=== PATIENT | female | born 1930 | race American Indian/Alaskan Native ===

== ENCOUNTER 2018-12-26 05:24 | Emergency (ER) | payer MEDICARE ==
--- NOTE | 2018-12-26 06:11 | XRay Report ---
LEFT SHOULDER 3 VIEWS 0550 INDICATION: fall. Pain and swelling COMPARISON: None available. FINDINGS: A comminuted impacted fracture of the neck of the humerus is seen with fracture lines exten ding into the humeral head. Slight medial and posterior angulation are noted. There also appears to b e deformity of the inferior rim of the glenoid which is thought to be fractured. No dislocation is se en. Signer Name: Thai Desai MD Signed: 12/26/2018 6:06 AM Workstation Name: [id number]
--- NOTE | 2018-12-26 06:37 | Emergency Department Report ---
ED General Adult HPI - General Chief complaint: Fall Stated complaint: FALL TO LT SIDE FOR SHOULDER Time Seen by Provider: 12/26/18 06:19 Source: patient Mode of arrival: Wheelchair Limitations: No Limitations - History of Present Illness Initial comments: Patient presents to the emergency department with her family for evaluation of left arm pain. Per the family the patient has dementia and is considered a walker. Yesterday the patient got away from the home and was approximately a couple 100 feet away before they were able to redirect her when she fell. Family is not sure if the patient hit her head or not but they do endorse that the patient has had nausea and vomiting since the incident. -: Sudden Location: upper extremity Severity scale (0 -10): 6 Quality: aching Consistency: constant Improves with: rest Worsens with: movement Associated Symptoms: denies other symptoms Treatments Prior to Arrival: none - Related Data Previous Rx's Medication Instructions Recorded Last Taken Type HYDROcodone/APAP 5-325 [[place] 1 each PO Q6HR PRN #12 tablet 12/26/18 Unknown Rx 5/325] Allergies Allergy/AdvReac Type Severity Reaction Status Date / Time No Known Allergies Allergy Verified 12/26/18 05:31 ED Review of Systems ROS: Stated complaint: FALL TO LT SIDE FOR SHOULDER Other details as noted in HPI Comment: All other systems reviewed and negative Constitutional: denies: chills, fever Eyes: denies: eye pain, eye discharge, vision change ENT: denies: ear pain, throat pain Respiratory: denies: cough, shortness of breath, wheezing Cardiovascular: denies: chest pain, palpitations Endocrine: no symptoms reported Gastrointestinal: denies: abdominal pain, nausea, diarrhea Genitourinary: denies: urgency, dysuria, discharge Musculoskeletal: denies: back pain, joint swelling, arthralgia Skin: denies: rash, lesions Neurological: denies: headache, weakness, paresthesias Psychiatric: denies: anxiety, depression Hematological/Lymphatic: denies: easy bleeding, easy bruising ED Past Medical Hx - Past Medical History Previous Medical History?: Yes Hx Hypertension: Yes Hx Dementia: Yes Additional medical history: Dementia. cholestrol. pacemaker - Surgical History Past Surgical History?: Yes Hx Pacemaker: Yes Additional Surgical History: bilateral eyes - Social History Smoking Status: Never Smoker Substance Use Type: None - Medications Home Medications: Home Medications Medication Instructions Recorded Confirmed Last Taken Type HYDROcodone/APAP 5-325 [[place] 1 each PO Q6HR PRN #12 tablet 12/26/18 Unknown Rx 5/325] ED Physical Exam - General Limitations: No Limitations General appearance: alert, in no apparent distress - Head Head exam: Present: atraumatic, normocephalic - Eye Eye exam: Present: normal appearance, PERRL, EOMI - ENT ENT exam: Present: mucous membranes moist - Neck Neck exam: Present: normal inspection - Respiratory Respiratory exam: Present: normal lung sounds bilaterally. Absent: respiratory distress - Cardiovascular Cardiovascular Exam: Present: regular rate, normal rhythm. Absent: systolic murmur, diastolic murmur, rubs, gallop - GI/Abdominal GI/Abdominal exam: Present: soft, normal bowel sounds. Absent: distended, tenderness - Extremities Exam Extremities exam: Present: other (tentative palpation of the proximal aspect of the left humerus with limited range of motion secondary to pain) - Back Exam Back exam: Present: normal inspection - Neurological Exam Neurological exam: Present: alert, oriented X3 - Psychiatric Psychiatric exam: Present: normal affect, normal mood - Skin Skin exam: Present: warm, dry, intact, normal color. Absent: rash ED Course Vital Signs 12/26/18 12/26/18 05:28 06:03 Temperature 98.6 F 98.2 F Pulse Rate 92 H 86 Respiratory 16 18 Rate Blood Pressure 150/77 Blood Pressure 116/67 [Left] O2 Sat by Pulse 94 100 Oximetry ED Medical Decision Making - Radiology Data Referring Physician: MARYANN PRETTY Patient Name: EYAD LUEVANO Date of : 1930 Sex: Female Report Date: 2018-12-26 Report Status: Finalized [facility] [address] [place] [address] XRay Report Signed Patient: EYAD LUEVANO MR# : [id number] : 1930 Acct:[id number] Age/Sex: 88 / F ADM Date: 12/26/18 Loc: ED Attending Dr: Ordering Physician: MARYANN PRETTY MD Date of Service: 12/26/18 Proced ure(s): XR shoulder 2+V LT Accession Number(s): [id number] cc: ED DOCMD Fluoro Time In Minutes: LEFT SHOULDER 3 VIEWS 0550 INDICATION: fall. Pain and swelling COMPARISON: None available. FINDINGS: A comminuted impacted fracture of the neck of the humerus is seen with fracture lines extending into the humeral head. Slight medial and posterior angulation are noted. There also appears to be deformity of the inferior rim of the glenoid which is thought to be fractured. No dislocation is seen. Signer Name: Thai Desai MD Signed: 12/26/2018 6:06 AM Workstation Name: [id number] Transcribed By: TIARRA Dictated By: Thai Desai MD Electronically Authenticated By: Thai Desai MD Signed Date/Time: 12/26/18605 DD/ 2 TD/TT: - Medical Decision Making Reviewed x-rays with the patient guest Patient has had no complaints of pain in the ED Sling and Johnny wrap applied Patient has good pulses and sensation distal to the fracture Critical care attestation.: If time is entered above; I have spent that time in minutes in the direct care of this critically ill patient, excluding procedure time. ED Disposition Clinical Impression: Femur fracture, left Disposition: DC-01 TO HOME OR SELFCARE Is pt being admited?: No Does the pt Need Aspirin: No Condition: Stable Instructions: Arm Fracture in Adults (ED) Additional Instructions: return if worse Referrals: AD PATEL MD [Primary Care Provider] - 3-5 Days ISAIAH DE LA PAZ MD [Staff Physician] - 3-5 Days Time of Disposition: 08:28
--- NOTE | 2018-12-26 07:13 | XRay Report ---
Pelvis AP 0650 INDICATION: Fall COMPARISON: None FINDINGS: Patient is rotated. Prominent lower lumbar degenerative changes are seen. Mild left sacroil iac arthritic changes are noted. Mild bilateral hip degenerative changes are seen. No definite fractu res or dislocations are seen. Signer Name: Thai Desai MD Signed: 12/26/2018 7:09 AM Workstation Name: [id number]
--- NOTE | 2018-12-26 07:51 | Cat Scan Report ---
CT HEAD WITHOUT CONTRAST INDICATION: MAIN: fall. LT SHOULDER PAIN. AMS. TECHNIQUE: All CT scans at this location are performed using CT dose reduction for ALARA by means of automated exposure control. COMPARISON: None available. FINDINGS: BRAIN: No hemorrhage or mass effect are seen. No evidence of acute infarction is noted. Moderate atro phic changes are seen, Central and cortical. Mild white matter microvascular changes are noted. A 12 mm tiny old cyst is seen with thin rim calcification. ORBITS: Normal as visualized. SOFT TISSUES OF HEAD: Normal. CALVARIUM: Normal. VISUALIZED PARANASAL SINUSES AND MASTOID AIR CELLS: Clear. ADDITIONAL FINDINGS: None. IMPRESSION: No acute intracranial abnormality. Pineal cyst Signer Name: Thai Desai MD Signed: 12/26/2018 7:47 AM Workstation Name: [id number]
[2018-12-26 09:11] VITALS: BP 148/71
== END 2018-12-26 09:11 | disposition home or self-care (01) ==
LOC: ED 05:24
DX: S42.302A Unspecified fracture of shaft of humerus, left arm, initial encounter for closed fracture (principal); I10 Essential (primary) hypertension; Z79.899 Other long term (current) drug therapy; Z95.0 Presence of cardiac pacemaker; W17.89XA Other fall from one level to another, initial encounter; Y93.89 Activity, other specified; Y92.89 Other specified places as the place of occurrence of the external cause; Y99.8 Other external cause status
CPT/HCPCS: 70450; 72170; 99284

== ENCOUNTER 2019-01-17 11:15 | Observation (INO) | payer MEDICARE ==
[2019-01-17 13:48] LABS: Basophils # (Auto) 0.1 K/mm3 (0.0-0.1); Basophils % (Auto) 0.9 % (0.0-1.8); Eosinophils # (Auto) 0.1 K/mm3 (0.0-0.4); Eosinophils % (Auto) 1.3 % (0.0-4.3); Hematocrit 37.9 % (30.3-42.9); Hemoglobin 12.6 gm/dl (10.1-14.3); Lymphocytes # (Auto) 1.4 K/mm3 (1.2-5.4); Lymphocytes % (Auto) 17.7 % (13.4-35.0); Mean Corpuscular HGB Conc 33 % (30-34); Mean Corpuscular Volume 92 fl (79-97); Monocytes # (Auto) 0.7 K/mm3 (0.0-0.8); Monocytes % (Auto) 9.3 % (0.0-7.3); Platelet Count 341 K/mm3 (140-440); Red Blood Count 4.14 M/mm3 (3.65-5.03); Red Cell Distribution Width 14.2 % (13.2-15.2)
--- NOTE | 2019-01-17 13:48 | XRay Report ---
CHEST 1 VIEW INDICATION: syncope. COMPARISON: none FINDINGS: Support devices: 2-lead pacemaker device appears in good position. Heart: Within normal limits. Lungs/Pleura: There is poor inspiration. Mild central pulmonary venous congestion is suspected. No co nsolidation, large pleural effusion or pneumothorax. Additional findings: The bony structures appear demineralized but intact. IMPRESSION: Mild pulmonary venous congestion. Signer Name: Franko Bell Jr, MD Signed: 01/17/2019 1:44 PM Workstation Name: [id number]
--- NOTE | 2019-01-17 13:55 | Emergency Department Report ---
ED Syncope HPI - General Chief Complaint: Syncope Stated Complaint: SYNCOPE Time Seen by Provider: 01/17/19 13:49 - History of Present Illness Initial Comments: 88-year-old -Mongol[place] female with history of dementia, hypertension, Pacemaker, and high cholesterol results to the ED via EMS from her primary care office for syncopal episode x prior to arrival patient's caretakers states patient had a sudden episode of vomiting and dizziness followed by 2 minutes of syncope. She denies any head trauma. Patient is a poor historian due to dementia. Patient has been evaluated by her Virginia Villasenor of [facility] today here in the ED and is to be admitted to hospital medicine - Related Data Allergies/Adverse Reactions: Allergies No Known Allergies Allergy (Verified 12/26/18 05:31) Home Medications: Ambulatory Orders HYDROcodone/APAP 5-325 [[place] 5/325] 1 each PO Q6HR PRN #12 tablet 12/26/18 ED Review of Systems ROS: Stated complaint: SYNCOPE Other details as noted in HPI Comment: Unobtainable due to pts medical conditions ED Past Medical Hx - Past Medical History Hx Hypertension: Yes Hx Dementia: Yes Additional medical history: Dementia. cholestrol. pacemaker - Surgical History Hx Pacemaker: Yes Additional Surgical History: bilateral eyes - Social History Smoking Status: Never Smoker Substance Use Type: Alcohol - Medications Home Medications: Home Medications Medication Instructions Recorded Confirmed Last Taken Type HYDROcodone/APAP 5-325 [[place] 1 each PO Q6HR PRN #12 tablet 12/26/18 Unknown Rx 5/325] ED Physical Exam - General Limitations: No Limitations General appearance: alert, in no apparent distress - Head Head exam: Present: atraumatic, normocephalic - Eye Eye exam: Present: normal appearance, PERRL. Absent: scleral icterus - Neck Neck exam: Present: normal inspection - Respiratory Respiratory exam: Present: normal lung sounds bilaterally - Cardiovascular Cardiovascular Exam: Present: regular rate, normal rhythm, normal heart sounds. Absent: systolic murmur, diastolic murmur - GI/Abdominal GI/Abdominal exam: Present: soft. Absent: distended, tenderness, guarding, rebound - Extremities Exam Extremities exam: Present: normal inspection, full ROM. Absent: tenderness, pe glo edema, calf tenderness - Neurological Exam Neurological exam: Present: alert. Absent: oriented X3 (dementia ) ED Course Vital Signs 01/17/19 01/17/19 11:42 13:07 Pulse Rate 85 Respiratory 17 20 Rate Blood Pressure 114/61 [Right] O2 Sat by Pulse 95 Oximetry ED Medical Decision Making - Lab Data Result diagrams: 01/17/19 13:38 01/17/19 13:38 - Medical Decision Making 88-year-old female patient here for a syncopal episode today. No acute findings on labs, chest x-ray, or CT head. Vitals are stable. Patient evaluated by cardiology here in ED and to be admitted to [facility] medicine Critical care attestation.: If time is entered above; I have spent that time in minutes in the direct care of this critically ill patient, excluding procedure time. ED Disposition Clinical Impression: Syncope and collapse Disposition: -09 OP ADMIT IP TO THIS HOSP Is pt being admited?: Yes Condition: Stable Instructions: Syncope (ED) Referrals: EUN DASILVA MD [Primary Care Provider] - 3-5 Days
[2019-01-17 13:57] LABS: INR 1.14 (0.87-1.13); Partial Thromboplastin Time 33.4 Sec. (24.2-36.6)
[2019-01-17 14:31] LABS: Alanine Aminotransferase 23 units/L (7-56); BUN/Creatinine Ratio 42; Blood Urea Nitrogen 21 mg/dL (7-17); Hemolysis Index 43
--- NOTE | 2019-01-17 14:32 | Cat Scan Report ---
CT HEAD WITHOUT CONTRAST HISTORY: Syncope. TECHNIQUE: Axial imaging performed from the skull apex through the skull base without the use of con trast. All CT scans at this location are performed using CT dose reduction for ALARA by means of aut omated exposure control. COMPARISON: 12/26/2018 FINDINGS: Parenchyma: No acute intracranial hemorrhage or parenchymal abnormality.. Mild hypoattenuation thro ughout the white matter is noted and consistent with chronic microvascular ischemic disease. 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 Ventricles: There is mild diffuse brain atrophy with commensurate ventricular enlargement which is l ikely age appropriate. Soft tissues: Soft tissues including the orbits appear normal. Bones: No acute osseous abnormality. Sinuses: Sinuses and mastoid air cells are clear. IMPRESSION: No acute abnormality. No change since 12/26/2018. Signer Name: Franko Bell Jr, MD Signed: 01/17/2019 2:28 PM Workstation Name: [id number]
--- NOTE | 2019-01-17 14:46 | Consultation ---
History of Present Illness Consult date: 01/17/19 Requesting physician: VITALIY KUMAR Consult reason: known to you, syncope History of present illness: The pt is an 88 YO female with a past medical history of nonobstructive CAD, CHB with PPM in situ, HTN, HLP, DM, dementia. She is followed in our office by Dr. Syed. She presented to our office today for scheduled appt. She was sitting in the waiting room when she became diaphoretic and then vomited. Shortly after vomiting, she was sitting in a chair in the waiting room when she briefly lost consciousness for several seconds. She did not fall or sustain any injuries. Her family members at bedside witnessed the event. She was transported to ED for further evaluation and management. On evaluation, she denies any current complaints. She denies any occurrence of chest pain, palpitations or dizziness. Prior to today's episode, she has been feeling well and in her normal state of health. Last month, she tripped and fell down at home (denies any LOC associated with that fall) and came to [facility] ED with c/o left arm pain. She was subsequently found to have left humerus fracture and was referred to orthopedics for OP follow up. Echo done 12/2016 showed EF 50-55%, trace MR, mild TR. LHC in 2010 showed nonobstructive CAD, 40% left circ. Past History Past Medical History: CAD, diabetes, hypertension, hyperlipidemia Past Surgical History: Other (PPM) Social history: lives with family. denies: smoking, alcohol abuse, prescription drug abuse Medications and Allergies Allergies Allergy/AdvReac Type Severity Reaction Status Date / Time No Known Allergies Allergy Verified 12/26/18 05:31 Home Medications Medication Instructions Recorded Confirmed Last Taken Type HYDROcodone/APAP 5-325 [[place] 1 each PO Q6HR PRN #12 tablet 12/26/18 Unknown Rx 5/325] Review of Systems Constitutional: no weight loss, no weight gain, no fever, no chills, no sweats Ears, nose, mouth and throat: no ear pain, no nose pain, no sinus pressure, no sinus pain Cardiovascular: syncope, no chest pain, no orthopnea, no palpitations, no rapid/irregular heart beat, no edema, no lightheadedness, no shortness of breath, no dyspnea on exertion, no paroxysmal nocturnal dyspnea Respiratory: no cough, no dyspnea on exertion, no congestion, no wheezing, no pain on inspiration Gastrointestinal: nausea, vomiting, no abdominal pain, no diarrhea, no constipation, no change in bowel habits Genitourinary Female: no pelvic pain, no flank pain, no dysuria, no urinary frequency, no urgency Musculoskeletal: no neck stiffness, no neck pain, no low back pain Integumentary: no rash, no pruritis, no redness, no sores, no wounds Neurological: syncope, no head injury, no paralysis, no weakness, no parathesias, no numbness, no tingling, no seizures Psychiatric: no anxiety Endocrine: no cold intolerance, no heat intolerance Hematologic/Lymphatic: no easy bruising, no easy bleeding Allergic/Immunologic: no urticaria, no wheezing Physical Examination Vital Signs Pulse Resp BP Pulse Ox 85 17 114/61 95 01/17/19 11:42 01/17/19 11:42 01/17/19 11:42 01/17/19 11:42 General appearance: no acute distress HEENT: Positive: PERRL, Normocephaly, Mucus Membranes Moist Neck: Positive: neck supple, trachea midline Cardiac: Positive: Reg Rate and Rhythm Lungs: Positive: Decreased Breath Sounds Neuro: Positive: Grossly Intact Abdomen: Negative: Tender Skin: Negative: Rash Musculoskeletal: other (left arm pain r/t recent left humerus fracture) Extremities: Absent: edema Results 01/17/19 13:38 01/17/19 13:38 Coagulation 01/17/19 Range/Units 13:38 PT 14.3 (12.2-14.9) Sec. INR 1.14 H (0.87-1.13) APTT 33.4 (24.2-36.6) Sec. CBC 01/17/19 Range/Units 13:38 WBC 7.8 (4.5-11.0) K/mm3 RBC 4.14 (3.65-5.03) M/mm3 Hgb 12.6 (10.1-14.3) gm/dl Hct 37.9 (30.3-42.9) % Plt Count 341 (140-440) K/mm3 Lymph # 1.4 (1.2-5.4) K/mm3 Gregory # 0.7 (0.0-0.8) K/mm3 Eos # 0.1 (0.0-0.4) K/mm3 Baso # 0.1 (0.0-0.1) K/mm3 Comprehensive Metabolic Panel 01/17/19 Range/Units 13:38 Sodium 136 L (137-145) mmol/L Potassium 4.7 (3.6-5.0) mmol/L Chloride 102.4 (98-107) mmol/L Carbon Dioxide 20 L (22-30) mmol/L BUN 21 H (7-17) mg/dL Creatinine 0.5 L (0.7-1.2) mg/dL Glucose 114 H (65-100) mg/dL Calcium 10.0 (8.4-10.2) mg/dL ALT 23 (7-56) units/L Alkaline Phosphatase 139 H (35-129) units/L Total Protein 7.7 (6.3-8.2) g/dL Albumin 4.0 (3.9-5) g/dL - Imaging and Cardiology Echo: report reviewed (12/2016 showed EF 50-55%, trace MR, mild TR. ) Cardiac cath: report reviewed (2010 showed nonobstructive CAD, 40% left circ. ) EKG: report reviewed, image reviewed EKG interpretations - Telemetry EKG Rhythm: Paced Assessment and Plan Syncope - ? vasovagal Aline negative for AMI x 1 set, ECG with no acute ischemic changes. Head CT with NAF. Interrogate PPM. Obtain orthostatics. F/u echo. N/v One episode of vomiting today prior to syncopal episode. Currently resolved. Nonobstructive CAD [facility] in 2010 showed nonobstructive CAD, 40% left circ. Aline negative for AMI x 1 set, ECG with no acute ischemic changes. F/u echo. H/o CHB, PPM in situ [place] device. Interrogate PPM. HTN Stable. HLP Cont statin. DM S/p recent mechanical fall with left humerus fracture The patient has been seen in conjunction with Dr. Torres who agrees with the assessment and plan of care.
--- NOTE | 2019-01-17 16:35 | History and Physical Report ---
History of Present Illness Chief complaint: Mom vomited, and the became diaphoretic and then passed out. History of present illness: 88 YO Female with HTN, Dementia, HLD, Cardiomyopathy S/P pacemaker placement presents to ED for evaluation. Pt is unable to provide detailed history. Pt daughter, who is a Physician, Dr. Raymundo is at bedside and provides history. As per daughter, the patient was undergoing a routine visit at her PCP office when she experienced a sudden onset of nausea and dizziness which was followed by an episode of vomiting, and then loss on consciousness. EMS was notified, and upon arrival the patient was found to be confused and in distress. Pt transported to [facility]. Pt seen and evaluated in ED and found to have Debility, Cardiomyopathy, worsening Dementia, as well as Syncope. Pt is S/P Fall resulting in Left Arm Fracture. Pt currently requires 5/6 Assistance with activities of daily living. Cardiology team consulted in ED. No reports of fever, chills, CP, palpitations, skin rash, ingestion of food/water from new or different sources. No prior admission for review. All listed medication reconciled at time of admission. Past History Past Medical History: CAD, diabetes, hypertension, hyperlipidemia Past Surgical History: Other (PPM) Social history: , lives with family. denies: smoking, alcohol abuse, prescription drug abuse Family history: hypertension Medications and Allergies Allergies Allergy/AdvReac Type Severity Reaction Status Date / Time No Known Allergies Allergy Verified 12/26/18 05:31 Home Medications Medication Instructions Recorded Confirmed Last Taken Type HYDROcodone/APAP 5-325 [[place] 1 each PO Q6HR PRN #12 tablet 12/26/18 01/17/19 Unknown Rx 5/325] Acetaminophen/Diphenhydramine 2 each PO DAILY 01/17/19 01/17/19 Unknown History [Tylenol Pm Ex-Strength Caplet] Amlodipine Bes/Olmesartan Med 1 each PO DAILY 01/17/19 01/17/19 Unknown History [Amlodipine-Olmesartan 10-20 mg] Aspirin [Adult Aspirin] 81 mg PO DAILY 01/17/19 01/17/19 Unknown History Cholecalciferol (Vitamin D3) 500 units PO DAILY 01/17/19 01/17/19 Unknown Histo ry [Children's Vitamin D3 1,000 unit CHEW] ISOSORBIDE MONOnitrate [Imdur ER] 60 mg PO DAILY 01/17/19 01/17/19 Unknown History Lipoic Acid 1 cap PO DAILY 01/17/19 01/17/19 Unknown History Multivitamin [One-Daily 2 each PO DAILY 01/17/19 01/17/19 Unknown History Multi-Vitamin] Rosuvastatin (Nf) [Crestor] 5 mg PO DAILY 01/17/19 01/17/19 Unknown History Sertraline [Zoloft] 25 mg PO DAILY 01/17/19 01/17/19 Unknown History Ubidecarenone [Co Q10] 600 mg PO DAILY 01/17/19 01/17/19 Unknown History Review of Systems ROS unobtainable: due to mental status Exam - Constitutional Vitals: Temp Pulse Resp BP Pulse Ox 85 20 114/61 95 01/17/19 11:42 01/17/19 13:07 01/17/19 11:42 01/17/19 11:42 General appearance: Present: no acute distress - EENT Eyes: Present: PERRL ENT: hearing intact, clear oral mucosa - Neck Neck: Present: supple, normal ROM - Respiratory Respiratory effort: normal Respiratory: bilateral: CTA - Cardiovascular Heart Sounds: Present: S1 & S2. Absent: rub, click - Extremities Extremities: pulses symmetrical, No edema Peripheral Pulses: within normal limits - Abdominal General gastrointestinal: Present: soft, non-tender, non-distended, normal bowel sounds Female genitourinary: Present: normal - Integumentary Integumentary: Present: clear, warm, dry - Musculoskeletal Musculoskeletal: gait normal, strength equal bilaterally - Psychiatric Psychiatric: no appropriate mood/affect, no intact judgment & insight, no memory intact, cooperative - Neurologic Neurologic: CNII-XII intact, moves all extremities, no gait normal Results - Labs CBC & Chem 7: 01/17/19 13:38 01/17/19 13:38 Labs: Abnormal lab results 01/17/19 01/17/19 01/17/19 Range/Units 13:15 13:38 13:38 [place] % (Auto) 9.3 H (0.0-7.3) % Seg Neutrophils % 70.8 H (40.0-70.0) % INR 1.14 H (0.87-1.13) Sodium (137-145) mmol/L Carbon Dioxide (22-30) mmol/L BUN (7-17) mg/dL Creatinine (0.7-1.2) mg/dL Glucose (65-100) mg/dL POC Glucose 124 H (70-105) Alkaline Phosphatase (35-129) units/L 01/17/19 Range/Units 13:38 [place] % (Auto) (0.0-7.3) % Seg Neutrophils % (40.0-70.0) % INR (0.87-1.13) Sodium 136 L (137-145) mmol/L Carbon Dioxide 20 L (22-30) mmol/L BUN 21 H (7-17) mg/dL Creatinine 0.5 L (0.7-1.2) mg/dL Glucose 114 H (65-100) mg/dL POC Glucose (70-105) Alkaline Phosphatase 139 H (35-129) units/L Assessment and Plan - Patient Problems (1) Cardiomyopathy Current Visit: Yes Status: Acute Qualifiers: Cardiomyopathy type: unspecified Qualified Code(s): I42.9 - Cardiomyopathy, unspecified Plan to address problem: Supportive care, Cardiology consulted in ED, (2) Dementia Current Visit: Yes Status: Acute Qualifiers: Dementia behavioral disturbance: without behavioral disturbance Plan to address problem: Supportive care, fall precautions, (3) HTN (hypertension) Current Visit: Yes Status: Acute Qualifiers: Hypertension type: essential hypertension Qualified Code(s): I10 - Essential (primary) hypertension Plan to address problem: Monitor bp q shift, continue current therapy (4) Diabetes Current Visit: Yes Status: Acute Plan to address problem: ADA diet, insulin, accu check, hypoglycemia protocol. (5) Syncope and collapse Current Visit: Yes Status: Acute Plan to address problem: CT head, neuro check, carotid doppler, thyroid panel, ivf resuscitation therapy, (6) Debility Current Visit: Yes Status: Acute Plan to address problem: PT consulted, supportive care. (7) Nausea & vomiting Current Visit: Yes Status: Acute Qualifiers: Vomiting Intractability: unspecified Plan to address problem: CT Abdomen/Pelvis, supportive care. (8) DVT prophylaxis Current Visit: Yes Status: Acute Plan to address problem: SCD to BLE while in bed,
[2019-01-17] MEDS ORDERED: ACETAMINOPHEN 325 MG TAB PO PRN (16:37)
[2019-01-17] MEDS ORDERED: ONDANSETRON 4 MG/2 ML INJ IV PRN (16:37)
[2019-01-17] MEDS ORDERED: SODIUM CHLORIDE 0.45% 1000 ML 1,000 ML IV SCH (17:00)
--- NOTE | 2019-01-17 17:32 | XRay Report ---
ABDOMEN 3 VIEW(S) INDICATION / CLINICAL INFORMATION: nausea/vomiting. COMPARISON: None available. FINDINGS: BOWEL: No dilated bowel. FREE AIR / EXTRALUMINAL GAS: None seen. CALCIFICATIONS: No significant abnormal calcifications. ADDITIONAL FINDINGS: None. LUNGS: Visualized lungs show no significant abnormality. SKELETAL STRUCTURES: No significant abnormality. IMPRESSION: 1. No significant abnormality. Signer Name: Andrew Gan MD Signed: 01/17/2019 5:27 PM Workstation Name: [id number]
[2019-01-17] MEDS ORDERED: HYDROcodone/ACETAMINOPHEN 5-325 MG TAB PO PRN (19:04)
[2019-01-18 04:47] LABS: Basophils # (Auto) 0.1 K/mm3 (0.0-0.1); Basophils % (Auto) 1.4 % (0.0-1.8); Eosinophils # (Auto) 0.2 K/mm3 (0.0-0.4); Eosinophils % (Auto) 3.5 % (0.0-4.3); Hematocrit 36.4 % (30.3-42.9); Hemoglobin 12.1 gm/dl (10.1-14.3); Lymphocytes # (Auto) 1.5 K/mm3 (1.2-5.4); Lymphocytes % (Auto) 24.2 % (13.4-35.0); Mean Corpuscular HGB Conc 33 % (30-34); Mean Corpuscular Volume 93 fl (79-97); Monocytes # (Auto) 0.6 K/mm3 (0.0-0.8); Monocytes % (Auto) 10.6 % (0.0-7.3); Platelet Count 298 K/mm3 (140-440); Red Cell Distribution Width 14.2 % (13.2-15.2)
[2019-01-18 05:47] LABS: Alanine Aminotransferase 20 units/L (7-56); BUN/Creatinine Ratio 28; Blood Urea Nitrogen 14 mg/dL (7-17); Calcium 9.7 mg/dL (8.4-10.2); Hemolysis Index 19
[2019-01-18 07:51] VITALS: BP 152/79
--- NOTE | 2019-01-18 09:45 | Discharge Summary ---
Providers - Providers Date of Admission: 01/17/19 16:37 Date of discharge: 01/18/19 Attending physician: VISHAL BURT 01/17/19 16:37 Consult to Physician [CONS] Routine Comment: Consulting Provider: SUDARSHAN JOYNER Physician Instructions: Reason For Exam: syncope 01/17/19 19:04 Physical Therapy Evaluation and Treat [CONS] Routine Comment: Reason For Exam: weakness [facility] Reason for admission: syncope Condition: Stable Hospital course: The pt is an 88 YO female with a past medical history of nonobstructive CAD, CHB with PPM in situ, HTN, HLP, DM, dementia who presented to Cardiology office for scheduled appt. on 01/17 and became diaphoretic and then vomited while in waiting room. Shortly after vomiting, she was sitting in a chair in the waiting room when she briefly lost consciousness for several seconds. She did not fall o r sustain any injuries. Her family members witnessed the event. She was transported to ED for further evaluation and management. On evaluation, she denied any occurrence of chest pain, palpitations or dizziness. The patient was admitted with diagnosis of syncope versus vertigo. Patient has a PPM that was interrogated and found to be within normal limits. Patient had no evidence of hypotension during hospitalization. Patient had no abnormalities on telemetry. Patient is felt to receive maximal hospital benefit and will be discharged home. Dedicated discharge time 32 minutes. Disposition: - TO HOME OR SELFCARE Time spent for discharge: 32 - Discharge Diagnoses (1) Vertigo Status: Acute (2) Cardiomyopathy Status: Acute Qualifiers: Cardiomyopathy type: unspecified Qualified Code(s): I42.9 - Cardiomyopathy, unspecified (3) Debility Status: Acute (4) Dementia Status: Acute Qualifiers: Dementia behavioral disturbance: without behavioral disturbance (5) Diabetes Status: Acute (6) HTN (hypertension) Status: Acute Qualifiers: Hypertension type: essential hypertension Qualified Code(s): I10 - Essential (primary) hypertension (7) Syncope and collapse Status: Acute Core Measure Documentation - Palliative Care Palliative Care/ Comfort Measures: Not Applicable - Core Measures Any of the following diagnoses?: none Exam - Constitutional Vitals: Temp Pulse Resp BP Pulse Ox 98.0 F 89 18 152/79 92 01/18/19 07:37 01/18/19 07:37 01/18/19 07:37 01/18/19 07:37 01/18/19 07:37 General appearance: Present: no acute distress, well-nourished - EENT Eyes: Present: PERRL ENT: hearing intact, clear oral mucosa - Neck Neck: Present: supple, normal ROM - Respiratory Respiratory effort: normal Respiratory: bilateral: CTA - Cardiovascular Heart Sounds: Present: S1 & S2. Absent: rub, click - Extremities Extremities: pulses symmetrical, No edema Peripheral Pulses: within normal limits - Abdominal General gastrointestinal: Present: soft, non-tender, non-distended, normal bowel sounds Female genitourinary: Present: normal - Integumentary Integumentary: Present: clear, warm, dry - Musculoskeletal Musculoskeletal: gait normal, strength equal bilaterally - Psychiatric Psychiatric: appropriate mood/affect, intact judgment & insight - Neurologic Neurologic: CNII-XII intact, moves all extremities Plan Activity: advance as tolerated Weight Bearing Status: Weight Bear as Tolerated Diet: diabetic Follow up with: EUN DASILVA MD [Primary Care Provider] - 3-5 Days SUDARSHAN JOYNER MD [Staff Physician] - 7 Days Prescriptions: Meclizine [Antivert] 25 mg PO TID PRN #30 tablet PRN Reason: Vertigo
[2019-01-18] MEDS ORDERED: UBIDECARENONE 600 MG PO SCH (10:00)
[2019-01-18] MEDS ORDERED: MULTIVITAMIN PO SCH (10:00)
[2019-01-18] MEDS ORDERED: [UNRECOGNIZED DRUG - OTHER] PO SCH (10:00)
[2019-01-18] MEDS ORDERED: ASPIRIN EC 81 MG TAB PO SCH (10:00)
[2019-01-18] MEDS ORDERED: SERTRALINE 25 MG TAB PO SCH (10:00)
[2019-01-18] MEDS ORDERED: amLODIPine 10 MG TAB PO SCH (10:00)
[2019-01-18] MEDS ORDERED: CHOLECALCIFEROL (VIT D3) 1000 UNIT TAB PO SCH (10:00)
[2019-01-18] MEDS ORDERED: LOSARTAN 50 MG TAB PO SCH (10:00)
[2019-01-18] MEDS ORDERED: [UNRECOGNIZED DRUG - OTHER] PO SCH (10:00)
[2019-01-18] MEDS ORDERED: MULTIVITAMINS ,THERAPEUTIC TAB PO SCH (10:00)
[2019-01-18] MEDS ORDERED: AMLODIPINE BES PO SCH (10:00)
[2019-01-18] MEDS ORDERED: LIPOIC ACID PO SCH (10:00)
[2019-01-18] MEDS ORDERED: NON-FORMULARY EACH (Rosuvastatin (Nf) 5 MG) PO SCH (10:00)
[2019-01-18] MEDS ORDERED: [UNRECOGNIZED DRUG - OTHER] PO SCH (10:00)
[2019-01-18] MEDS ORDERED: OLMESARTAN MED PO SCH (10:00)
[2019-01-18] MEDS ORDERED: ACETAMINOPHEN PO SCH (10:00)
[2019-01-18] MEDS ORDERED: CHOLECALCIFEROL PO SCH (10:00)
[2019-01-18] MEDS ORDERED: DIPHENHYDRAMINE PO SCH (10:00)
--- NOTE | 2019-01-18 11:34 | Progress Note ---
Assessment and Plan Syncope - ? vertigo Aline negative for AMI x 1 set, ECG with no acute ischemic changes. Head CT with NAF. PPM interrogation wnl Await echo. N/v One episode of vomiting yesterday prior to syncopal episode. Currently resolved. Pending abdomen CT. Nonobstructive CAD [facility] in 2010 showed nonobstructive CAD, 40% left circ. Aline negative for AMI x 1 set, ECG with no acute ischemic changes. Await echo. H/o CHB, PPM in situ [facility] [facility] device. PPM interrogation wnl. HTN Stable. HLP Cont statin. DM S/p recent mechanical fall with left humerus fracture Currently stable cardiac status. Suspect vertigo. Await echo. Pending echo is unremarkable, pt may discharge home from cardiology standpoint. Recommend follow up in our office with Dr. Syed within 1-2 weeks ([phone]). Pt's family verbalizes understanding. The patient has been seen in conjunction with Dr. Torres who agrees with the assessment and plan of care. Subjective Date of service: 01/18/19 Principal diagnosis: syncope Interval history: pt resting in bed, states she is feeling much better today. no n/v, eating lunch. tele reviewed - paced with no acute events overnight. Objective Last Vital Signs Temp 98.0 F 01/18/19 07:37 Pulse 109 H 01/18/19 09:00 Resp 18 01/18/19 07:37 BP 152/79 01/18/19 07:37 Pulse Ox 98 01/18/19 11:16 - Physical Examination General: No Apparent Distress HEENT: Positive: PERRL, Normocephaly, Mucus Membranes Moist Neck: Positive: neck supple, trachea midline Cardiac: Positive: Reg Rate and Rhythm, S1/S2 Lungs: Positive: Decreased Breath Sounds Neuro: Positive: Grossly Intact Abdomen: Negative: Tender Skin: Negative: Rash Musculoskeletal: other (left arm pain r/t recent left humerus fracture) Extremities: Absent: edema - Labs and Meds Cardiac Enzymes 01/17/19 01/18/19 Range/Units 13:38 04:06 AST 30 24 (5-40) units/L Coagulation 01/17/19 Range/Units 13:38 PT 14.3 (12.2-14.9) Sec. INR 1.14 H (0.87-1.13) APTT 33.4 (24.2-36.6) Sec. CBC 01/17/19 01/18/19 Range/Units 13:38 04:06 WBC 7.8 6.1 (4.5-11.0) K/mm3 RBC 4.14 3.90 (3.65-5.03) M/mm3 Hgb 12.6 12.1 (10.1-14.3) gm/dl Hct 37.9 36.4 (30.3-42.9) % Plt Count 341 298 (140-440) K/mm3 Lymph # 1.4 1.5 (1.2-5.4) K/mm3 [place] # 0.7 0.6 (0.0-0.8) K/mm3 Eos # 0.1 0.2 (0.0-0.4) K/mm3 Baso # 0.1 0.1 (0.0-0.1) K/mm3 Comprehensive Metabolic Panel 01/17/19 01/18/19 Range/Units 13:38 04:06 Sodium 136 L 137 (137-145) mmol/L Potassium 4.7 4.3 (3.6-5.0) mmol/L Chloride 102.4 100.8 (98-107) mmol/L Carbon Dioxide 20 L 21 L (22-30) mmol/L BUN 21 H 14 (7-17) mg/dL Creatinine 0.5 L 0.5 L (0.7-1.2) mg/dL Glucose 114 H 116 H (65-100) mg/dL Calcium 10.0 9.7 (8.4-10.2) mg/dL AST 30 24 (5-40) units/L ALT 23 20 (7-56) units/L Alkaline Phosphatase 139 H 132 H (35-129) units/L Total Protein 7.7 7.3 (6.3-8.2) g/dL Albumin 4.0 4.0 (3.9-5) g/dL - Imaging and Cardiology EKG: report reviewed, image reviewed Echo: report reviewed (12/2016 showed EF 50-55%, trace MR, mild TR. ) Cardiac cath: report reviewed (2010 showed nonobstructive CAD, 40% left circ. )
--- NOTE | 2019-01-18 11:38 | Vascular Lab Report ---
BILATERAL CAROTID DOPPLER ULTRASOUND INDICATION : syncope TECHNIQUE: Grayscale and color Doppler imaging performed through the neck. COMPARISON: None FINDINGS: Right: There is no significant atherosclerotic disease. Peak systolic velocity in the CCA is 62 cm/ s with end-diastolic velocity of 12 cm/s. Peak systolic velocity in the proximal ICA is 81 cm/s with end-diastolic velocity of 16 cm/s. ICA to CCA ratio is less than 2. There is antegrade flow in the E CA and the vertebral artery. Left: There is no significant atherosclerotic disease. Peak systolic velocity in the CCA is 85 cm/s w ith end-diastolic velocity of 13 cm/s. Peak systolic velocity in the proximal ICA is 85 cm/s with end -diastolic velocity of 21 cm/s. ICA to CCA ratio is less than 2. There is antegrade flow in the ECA and the vertebral artery. IMPRESSION: No hemodynamically significant stenosis by NASCET criteria. Signer Name: Franko Bell Jr, MD Signed: 01/18/2019 11:34 AM Workstation Name: [id number]
--- NOTE | 2019-01-18 13:50 | Cat Scan Report ---
CT ABDOMEN AND PELVIS WITHOUT CONTRAST HISTORY: vomiting COMPARISON: None. TECHNIQUE: Axial CT images were obtained through the abdomen and pelvis without IV contrast. Sagittal and coronal reformatted images. All CT scans at this location are performed using CT dose reduction for ALARA by means of automated exposure control. FINDINGS: Slightly limited examination by patient motion. CT ABDOMEN: Lung Bases: Clear. Liver: No significant abnormality. Biliary: No significant abnormality. Spleen: No significant abnormality. Unenlarged. Pancreas: No significant abnormality. Adrenals: No significant abnormality. Kidneys: No significant abnormality. Lymphatics: No lymphadenopathy. Vasculature: Mild diffuse aortic and iliac calcifications. No aneurysm Bowel/Peritoneum: There are several diverticula in the sigmoid colon. There is oral contrast in the d istal small bowel loops and colon. No evidence for obstruction or focal inflammation. No free fluid o r free air. The appendix is not identified. CT PELVIS: : Hysterectomy. The bladder is mildly distended but no wall abnormality or filling defect is identi fied. Osseous Structures: Moderate to severe thoracolumbar spondylosis. No acute fracture or suspicious bon y lesion. Additional Findings: None IMPRESSION: No acute abdominal process is identified. Mild diverticulosis of the distal colon. Assumed hysterectomy and appendectomy. Mildly distended bladder. Signer Name: Franko Bell Jr, MD Signed: 01/18/2019 1:46 PM Workstation Name: [id number]
== END 2019-01-18 15:48 | disposition home or self-care (01) ==
LOC: ED 11:15 → 4A 16:37
PROVIDERS: ADMIT Internal Medicine; ATTEND Hospitalist
DX: I42.9 Cardiomyopathy, unspecified (principal); R55 Syncope and collapse; F03.90 Unspecified dementia, unspecified severity, without behavioral disturbance, psychotic disturbance, mood disturbance, and anxiety; R11.2 Nausea with vomiting, unspecified; I10 Essential (primary) hypertension; I25.10 Atherosclerotic heart disease of native coronary artery without angina pectoris; E11.9 Type 2 diabetes mellitus without complications; R53.81 Other malaise; E78.5 Hyperlipidemia, unspecified; Z95.0 Presence of cardiac pacemaker; Z79.82 Long term (current) use of aspirin
CPT/HCPCS: 36415; 70450; 71045; 74019; 74177; 80053; 82962; 83690; 83880; 84484; 85025; 85610; 85730; 93005; 93010; 93306; 93880; 96360; 96361; 99284; G0378; J7030; A9270-GY